=== PATIENT | male | born 1985 | race Caucasian/White ===

== ENCOUNTER 2018-03-23 23:44 | Emergency (ER) | payer BC, OTHER ==
[2018-03-24] MEDS: FLUORESCEIN STRIP RIGHT EYE (00:31)
[2018-03-24] MEDS: TETRACAINE 0.5% 4 ML OPH RIGHT EYE (01:26)
== END 2018-03-24 02:05 | disposition home or self-care (01) ==
LOC: FTE 23:44
DX: T54.3X1A Toxic effect of corrosive alkalis and alkali-like substances, accidental (unintentional), initial encounter (principal)
CPT/HCPCS: 99283

== ENCOUNTER 2018-06-06 17:59 | Inpatient (IN) | payer BC ==
[2018-06-06 19:39] LABS: ADD MAN DIFF? NO
[2018-06-06 19:41] LABS: WHITE BLOOD COUNT 10.1 10^3/ul (4.8-10.8)
[2018-06-06 19:41] LABS: BASOPHILS % 0.3 % (0.0-2.0); EOSINOPHILS % 0.1 % (0.0-7.0); HEMATOCRIT 45.4 % (42.0-52.0); HEMOGLOBIN 14.4 g/dl (14.0-18.0); LYMPHOCYTES # 0.8 10^3/ul (0.8-2.9); MEAN CORPUSCULAR HGB CONC 31.7 g/dl (32.0-37.0); MEAN CORPUSCULAR VOLUME 82.1 fl (82.0-101.0); MEAN PLATELET VOLUME 9.3 fl (7.4-10.4); MONOCYTE # 0.3 10^3/ul (0.3-0.9); MONOCYTES % 3.4 % (0.0-11.0); NEUTROPHIL # 8.9 10^3/ul (1.6-7.5); NEUTROPHILS % 87.9 % (39.0-77.0); PLATELET COUNT 213 10^3/UL (140-415); RED BLOOD COUNT 5.53 10^6/ul (4.70-6.10); RED CELL DISTRIBUTION WIDTH 13.8 % (11.5-14.5)
[2018-06-06 20:02] LABS: ANION GAP 16 (8-16); BLOOD UREA NITROGEN 11 mg/dl (7-20); CALCIUM 9.2 mg/dl (8.4-10.2); CARBON DIOXIDE 28 mmol/L (21-31); CHLORIDE 102 mmol/L (97-110); CREATININE 0.76 mg/dl (0.61-1.24); GLUCOSE 127 mg/dl (70-220); POTASSIUM 4.1 mmol/L (3.5-5.1); SODIUM 142 mmol/L (135-144)
[2018-06-06 20:14] LABS: B-TYPE NATRIURETIC PEPTIDE 16 PG/ML (0-125); TROPONIN-I < 0.010 ng/ml (0.000-0.120)
[2018-06-06] MEDS ORDERED: NACL 0.9% 3 ML SYG IV (21:30)
[2018-06-06] MEDS ORDERED: BISACODYL (EC) 5 MG TAB PO (21:30)
[2018-06-06] MEDS ORDERED: ONDANSETRON 4 MG TAB PO (21:30)
[2018-06-06] MEDS ORDERED: DOCUSATE SODIUM 100 MG CAP PO (21:30)
[2018-06-06 21:43] LABS: INR 1.01; PROTIME 13.4 Sec (11.9-14.9)
[2018-06-06 21:44] LABS: PARTIAL THROMBOPLASTIN TIME 25.3 Sec (25.0-35.0)
[2018-06-06 21:49] LABS: ETHANOL < 10.0 mg/dl
[2018-06-06] MEDS: ASPIRIN 81 MG TAB PO (23:29)
[2018-06-07 02:18] LABS: CREATINE KINASE 69 IU/L (23-200)
[2018-06-07 02:31] LABS: CK INDEX 0.7; CK-MB 0.45 ng/ml (0.0-2.4); TROPONIN-I < 0.010 ng/ml (0.000-0.120)
[2018-06-07 05:39] LABS: ADD MAN DIFF? NO
[2018-06-07 05:42] LABS: BASOPHILS % 0.5 % (0.0-2.0); EOSINOPHILS # 0.1 10^3/ul (0.0-0.5); EOSINOPHILS % 0.8 % (0.0-7.0); HEMATOCRIT 41.2 % (42.0-52.0); HEMOGLOBIN 13.4 g/dl (14.0-18.0); LYMPHOCYTES # 1.6 10^3/ul (0.8-2.9); LYMPHOCYTES % 26.3 % (15.0-51.0); MEAN CORPUSCULAR HEMOGLOBIN 26.2 pg (29.0-33.0); MEAN CORPUSCULAR HGB CONC 32.5 g/dl (32.0-37.0); MEAN CORPUSCULAR VOLUME 80.6 fl (82.0-101.0); MEAN PLATELET VOLUME 9.4 fl (7.4-10.4); MONOCYTE # 0.5 10^3/ul (0.3-0.9); MONOCYTES % 7.8 % (0.0-11.0); NEUTROPHIL # 3.8 10^3/ul (1.6-7.5); NEUTROPHILS % 64.4 % (39.0-77.0); PLATELET COUNT 197 10^3/UL (140-415); RED BLOOD COUNT 5.11 10^6/ul (4.70-6.10); RED CELL DISTRIBUTION WIDTH 13.7 % (11.5-14.5)
[2018-06-07 05:42] LABS: WHITE BLOOD COUNT 5.9 10^3/ul (4.8-10.8)
[2018-06-07 06:13] LABS: CREATINE KINASE 58 IU/L (23-200)
[2018-06-07 06:22] LABS: ALANINE AMINOTRANSFERASE 24 IU/L (13-69); ALBUMIN 3.7 g/dl (3.3-4.9); ALBUMIN/GLOBULIN RATIO 1.37; ALKALINE PHOSPHATASE 43 IU/L (42-121); AMPHETAMINE/METHAMPHETAMINE Negative (NEGATIVE); ANION GAP 9 (8-16); ASPARTATE AMINO TRANSFERASE 19 IU/L (15-46); BARBITURATES Negative (NEGATIVE); BENZODIAZEPINES Negative (NEGATIVE); BILIRUBIN,INDIRECT 1.7 mg/dl (0-1.1); BILIRUBIN,TOTAL 1.7 mg/dl (0.2-1.3); BLOOD UREA NITROGEN 10 mg/dl (7-20); CALCIUM 9.5 mg/dl (8.4-10.2); CANNABINOIDS Negative (NEGATIVE); CARBON DIOXIDE 32 mmol/L (21-31); CHLORIDE 104 mmol/L (97-110); CHOL/HDL RATIO 3.4 RATIO; CHOLESTEROL 124 mg/dl (100-200); COCAINE Negative (NEGATIVE); CREATININE 0.78 mg/dl (0.61-1.24); GLUCOSE 88 mg/dl (70-220); HDL CHOLESTEROL 36 mg/dl (28-63); LDL CHOLESTEROL,CALCULATED 79 mg/dl; OPIATES Negative (NEGATIVE); POTASSIUM 4.2 mmol/L (3.5-5.1); SODIUM 141 mmol/L (135-144); TOTAL PROTEIN 6.4 g/dl (6.1-8.1); TRIGLYCERIDES 47 mg/dl (0-149)
[2018-06-07 06:25] LABS: CK INDEX 0.7; TROPONIN-I < 0.010 ng/ml (0.000-0.120)
[2018-06-07 06:47] LABS: FREE T4 (FREE THYROXINE) 1.13 ng/dl (0.79-2.35)
[2018-06-07 06:47] LABS: THYROID STIMULATING HORMONE 0.953 MIU/L (0.465-4.680)
[2018-06-07 06:48] LABS: FREE T3 3.97 pg/ml (2.77-5.27)
[2018-06-07 07:45] LABS: HEMOGLOBIN A1C 5.1 % (0-5.9)
[2018-06-07] MEDS: ASPIRIN 81 MG TAB PO (08:25)
[2018-06-07] MEDS ORDERED: ASPIRIN 81 MG TAB PO (09:00)
[2018-06-07] MEDS: ACETAMINOPHEN 325 MG TAB PO (17:43)
[2018-06-07] MEDS: METOPROLOL 25 MG TAB PO (20:33)
[2018-06-08] MEDS: ASPIRIN 325 MG TAB PO (08:47)
[2018-06-08] MEDS: METOPROLOL 25 MG TAB PO (08:48)
== END 2018-06-08 11:15 | disposition home or self-care (01) | DRG 310 ==
LOC: E/R 17:59 → 6WM 22:21
DX: I48.0 Paroxysmal atrial fibrillation (principal); D64.9 Anemia, unspecified; F32.9 Major depressive disorder, single episode, unspecified; M19.90 Unspecified osteoarthritis, unspecified site; Z79.82 Long term (current) use of aspirin
CPT/HCPCS: 36415; 71045; 80048; 80053; 80061; 80307; 82550; 82553; 83036; 83735; 83880; 84439; 84443; 84481; 84484; 85025; 85610; 85730; 93005; 93306; 99285-25